=== PATIENT | male | born 1975 ===

== ENCOUNTER 2019-03-09 15:57 | Emergency (ER) | payer OTHER ==
--- NOTE | 2019-03-09 16:06 | UC ---
Lower Extremity/Ankle HPI - HPI Summary HPI Summary: Has noticed blisters on his R bottom foot for several weeks. He does state that he picks at them. Today noticed pain and redness. Uses topical antifungal w/ no relief. Of note he walks up to 9mi a day but uses cotton socks. Has had MRSA in the past. - History of Current Complaint Chief Complaint: UCGeneralIllness Stated Complaint: RT LEG ANKLE SWELLING Time Seen by Provider: 03/09/19 16:03 Hx Obtained From: Patient Aggravating Factor(s): Ambulation Alleviating Factor(s): Rest Able to Bear Weight: Yes - Allergies/Home Medications Allergies/Adverse Reactions: Allergies Allergy/AdvReac Type Severity Reaction Status Date / Time Egg Derived Allergy Hives/Diff. Verified 03/09/19 16:25 Breathing/I tching Penicillins Allergy See Comment Verified 03/09/19 16:26 poison khurram extract Allergy Hives Verified 03/09/19 16:26 poison oak extract Allergy Hives Verified 03/09/19 16:26 Home Medications: Home Medications Acetaminophen TAB* [Tylenol TAB*] 03/09/19 [History] PMH/Surg Hx/FS Hx/Imm Hx Endocrine History: Other - obesity - Surgical History Surgical History: None - Family History Known Family History: Positive: None, Unknown - Social History Alcohol Use: None Substance Use Type: Marijuana Smoking Status (MU): Former Smoker Type: Cigarettes Amount Used/How Often: quit 06/26/14 Review of Systems All Other Systems Reviewed And Are Negative: Yes Constitutional: Negative: Fever Skin: Positive: Other. Negative: Rash Gastrointestinal: Negative: Vomiting, Nausea Musculoskeletal: Positive: Edema. Negative: Arthralgia Physical Exam Triage Information Reviewed: Yes Appearance: Well-Appearing, Obese Vital Signs Reviewed: Yes Neurological: Positive: Alert Skin: Positive: Other - R plantar/arch area is erytheamtous, tender and mildly swollen up to just beneath ankle. Scattered pustules, some unroofed and some maceration. Lower Extremity Course/Dx - Course Course Of Treatment: Chronic tinea pedis w/ new cellulitis at R plantar/arch. Will tx both and we discussed getting wool socks since he is a long distance walker. Afebrile and good vitals. Straight forward case. - Differential Dx/Diagnosis Differential Diagnosis/HQI/PQRI: Gout, Infection, Other Provider Diagnosis: Cellulitis, Tinea pedis Discharge ED - Sign-Out/Discharge Documenting (check all that apply): Patient Departure All imaging exams completed and their final reports reviewed: No Studies - Discharge Plan Condition: Good Disposition: HOME Prescriptions: Sulfamethox/Trimethoprim DS* [Bactrim DS 800/160 TAB*] 1 tab PO BID 7 Days #14 tab Terbinafine HCl 250 mg PO DAILY 14 Days #14 tablet Patient Education Materials: Athlete's Foot (ED) Referrals: No Primary Care Phys,NOPCP [Primary Care Provider] - Additional Instructions: please consider finding a pcp for outpatient management - Billing Disposition and Condition Condition: GOOD Disposition: Home - Attestation Statements Provider Attestation: I was available for consult. This patient was seen by the CARLEY. The patient was not presented to, seen by, or examined by me. -Aquilino
[2019-03-09 16:19] VITALS: BP 135/91
== END 2019-03-09 16:49 | disposition home or self-care (01) ==
LOC: UCEAST 15:57
DX: B35.3 Tinea pedis (principal); L03.115 Cellulitis of right lower limb; Z87.891 Personal history of nicotine dependence; Z88.0 Allergy status to penicillin
CPT/HCPCS: 99202; G0463

== ENCOUNTER 2019-03-28 20:17 | Emergency (ER) | payer SELFPAY ==
[2019-03-28 20:30] VITALS: BP 152/98
[2019-03-28] MEDS ORDERED: Clindamycin CAP* 150 MG PO ONE (20:58)
--- NOTE | 2019-03-28 21:06 | UC ---
Lower Extremity/Ankle HPI - HPI Summary HPI Summary: 44 year old male with no PMH other than MRSA but no regular check ups/ PCP presents with redness, pain, medial ankle. patient was seen on 03/09, dx'd with cellulitis, tinea pedis, started on bactrim, finished full course with improvement, however redness increased over past few days, worse today. no fevers, chills. ambulatory with minimal pain. - History of Current Complaint Chief Complaint: UCSkin Stated Complaint: SKIN COMPLAINT Time Seen by Provider: 03/28/19 20:26 Hx Obtained From: Patient Onset/Duration: Sudden Onset, Lasting Days Severity Initially: Moderate Severity Currently: Moderate Pain Intensity: 5 Pain Scale Used: 0-10 Numeric Aggravating Factor(s): Standing, Ambulation Alleviating Factor(s): Rest Able to Bear Weight: No - Allergies/Home Medications Allergies/Adverse Reactions: Allergies Allergy/AdvReac Type Severity Reaction Status Date / Time Egg Derived Allergy Hives/Diff. Verified 03/09/19 16:25 Breathing/I tching Penicillins Allergy See Comment Verified 03/09/19 16:26 poison khurram extract Allergy Hives Verified 03/09/19 16:26 poison oak extract Allergy Hives Verified 03/09/19 16:26 Home Medications: Home Medications Calcium Carbonate [Antacid] 420 mg PO DAILY 03/28/19 [History Confirmed 03/28/19 ] PMH/Surg Hx/FS Hx/Imm Hx Previously Healthy: No - MRSA, multiple abscesses no PCP - Surgical History Surgical History: None - Family History Known Family History: Positive: None, Unknown, Non-Contributory - Social History Alcohol Use: None Substance Use Type: Marijuana Smoking Status (MU): Former Smoker Type: Cigarettes Amount Used/How Often: quit 06/26/14 Review of Systems All Other Systems Reviewed And Are Negative: Yes Constitutional: Negative: Fever, Chills, Fatigue Skin: Positive: Rash Psychological: Positive: Negative Is Patient Immunocompromised?: No Physical Exam Triage Information Reviewed: Yes Appearance: Well-Appearing, No Pain Distress, Well-Nourished Vital Signs: Initial Vital Signs Temp 99.7 F 03/28/19 20:20 Pulse 86 03/28/19 20:20 Resp 17 03/28/19 20:20 BP 152/98 03/28/19 20:20 Pulse Ox 98 03/28/19 20:20 Vital Signs Reviewed: Yes Eyes: Positive: Conjunctiva Clear Musculoskeletal: Positive: Strength Intact - right ankle, ROM Intact - right ankle, Edema @ - minimal medial ankle, no lateral pain. Neurological: Positive: Alert, Muscle Tone Normal Psychological: Positive: Normal Response To Family Skin: Positive: Other - erythema, moderate, extending medial to ankle from plantar midfoot to lower 1/3rd of ankle. mild 1+ pitting edema. TTP, + warmth Lower Extremity Course/Dx - Course Course Of Treatment: - Topical ointment at night for athletes foot, powder during the day - Clindamycin antibiotics 4 times a day for 2 weeks- if not nearly gone in 10 days return for follow up - Go to ER with fever, increased pain, decreased movement, ankle pain, increased swelling - Motrin/ Tylenol as needed for pain - FOllow up with PCP for general examination, bp monitoring, care connections info given - Differential Dx/Diagnosis Differential Diagnosis/HQI/PQRI: Cellulitis, Osteomyelitis, Sprain, Strain Provider Diagnosis: Cellulitis due to MRSA Discharge ED - Sign-Out/Discharge Documenting (check all that apply): Patient Departure All imaging exams completed and their final reports reviewed: No Studies - Discharge Plan Condition: Good Disposition: HOME Prescriptions: Clindamycin HCl 150 mg PO QID #48 capsule Clotrimazole 1% TOPICAL (NF) [Lotrimin 1% TOPICAL (NF)] 3 gm TOPICAL BID #1 tub unit Tolnaftate [Tinactin] 1 gm EX DAILY #1 pow Patient Education Materials: Clindamycin (By mouth), MRSA (Methicillin- Resistant Staphylococcus Aureus) (ED), Cellulitis (ED) Referrals: [facility] [Outside] No Primary Care Phys,NOPCP [Primary Care Provider] - Additional Instructions: - Topical ointment at night for athletes foot, powder during the day - Clindamycin antibiotics 4 times a day for 2 weeks- if not nearly gone in 10 days return for follow up - Go to ER with fever, increased pain, decreased movement, ankle pain, increased swelling - Motrin/ Tylenol as needed for pain - Billing Disposition and Condition Condition: GOOD Disposition: Home
== END 2019-03-28 21:11 | disposition home or self-care (01) ==
LOC: UCEAST 20:17
DX: L03.115 Cellulitis of right lower limb (principal); B95.62 Methicillin resistant Staphylococcus aureus infection as the cause of diseases classified elsewhere; Z91.012 Allergy to eggs; Z88.0 Allergy status to penicillin; Z91.09 Other allergy status, other than to drugs and biological substances; Z87.891 Personal history of nicotine dependence
CPT/HCPCS: 99212; A9270-GY; G0463

== ENCOUNTER 2019-06-30 15:37 | Emergency (ER) | payer SELFPAY ==
[2019-06-30 16:01] VITALS: BP 136/81
--- NOTE | 2019-06-30 16:41 | UC ---
Respiratory Complaint HPI - HPI Summary HPI Summary: patient had a cough on Monday and called in to work he needs a note to return to work - History of Current Complaint Chief Complaint: UCGeneralIllness Stated Complaint: NEEDS NOTE TO RETURN TO WORK Time Seen by Provider: 06/30/19 16:35 Hx Obtained From: Patient Onset/Duration: Resolved Pain Intensity: 0 Pain Scale Used: 0-10 Numeric Aggravating Factors: Nothing Alleviating Factors: Nothing Associated Signs And Symptoms: Positive: URI - Allergies/Home Medications Allergies/Adverse Reactions: Allergies Allergy/AdvReac Type Severity Reaction Status Date / Time Egg Derived Allergy Hives/Diff. Verified 06/30/19 16:01 Breathing/I tching Penicillins Allergy See Comment Verified 06/30/19 16:01 poison khurram extract Allergy Hives Verified 06/30/19 16:01 poison oak extract Allergy Hives Verified 06/30/19 16:01 PMH/Surg Hx/FS Hx/Imm Hx Previously Healthy: Yes - Surgical History Surgical History: None - Family History Known Family History: Positive: None, Unknown, Non-Contributory - Social History Occupation: Employed Full-time Lives: With Family Alcohol Use: Rare Substance Use Type: Marijuana Smoking Status (MU): Former Smoker Type: Cigarettes Amount Used/How Often: quit 06/26/14 Review of Systems All Other Systems Reviewed And Are Negative: Yes Constitutional: Positive: Negative Skin: Positive: Negative Eyes: Positive: Negative ENT: Positive: Negative Respiratory: Positive: Cough - resolved Cardiovascular: Positive: Negative Gastrointestinal: Positive: Negative Genitourinary: Positive: Negative Motor: Positive: Negative Neurovascular: Positive: Negative Musculoskeletal: Positive: Negative Neurological: Positive: Negative Psychological: Positive: Negative Is Patient Immunocompromised?: No Physical Exam Triage Information Reviewed: Yes Appearance: Well-Appearing, Well-Nourished, Obese Vital Signs: Initial Vital Signs Temp 98.2 F 06/30/19 15:56 Pulse 69 06/30/19 15:56 Resp 20 06/30/19 15:56 BP 136/81 06/30/19 15:56 Pulse Ox 97 06/30/19 15:56 Vital Signs Reviewed: Yes Eye Exam: Normal Eyes: Positive: Conjunctiva Clear ENT Exam: Normal ENT: Positive: Normal ENT inspection, Hearing grossly normal, Pharynx normal, TMs normal. Negative: Nasal congestion, Trismus, Muffled voice, Hoarse voice Dental: Positive: Gross Decay/Caries @ Neck exam: Normal Neck: Positive: Supple, Nontender Respiratory: Positive: Chest non-tender, Lungs clear, No respiratory distress, No accessory muscle use, Wheezing Cardiovascular Exam: Normal Cardiovascular: Positive: RRR, No Murmur, Pulses Normal, Brisk Capillary Refill Musculoskeletal Exam: Normal Musculoskeletal: Positive: Strength Intact, ROM Intact, No Edema Neurological Exam: Normal Neurological: Positive: Alert, Muscle Tone Normal Psychological Exam: Normal Skin Exam: Normal Respiratory Course/Dx - Course Course Of Treatment: Albuterol MDI prn cough and wheeze referral to pcp for further concerns may return to work 07/01/19 - Differential Dx/Diagnosis Provider Diagnosis: URI (upper respiratory infection), Bronchospasm Discharge ED - Sign-Out/Discharge Documenting (check all that apply): Patient Departure All imaging exams completed and their final reports reviewed: No Studies - Discharge Plan Condition: Stable Disposition: HOME Prescriptions: Albuterol HFA INHALER* [Ventolin HFA Inhaler*] 2 puff INH Q4H PRN #1 mdi PRN Reason: cough/wheeze Patient Education Materials: Upper Respiratory Infection (ED) Forms: *Work Release Referrals: [facility] [Outside] - If Needed - Billing Disposition and Condition Condition: STABLE Disposition: Home
== END 2019-06-30 16:57 | disposition home or self-care (01) ==
LOC: UCEAST 15:37
DX: J06.9 Acute upper respiratory infection, unspecified (principal); J98.01 Acute bronchospasm; Z87.891 Personal history of nicotine dependence; Z91.012 Allergy to eggs; Z88.0 Allergy status to penicillin; Z91.09 Other allergy status, other than to drugs and biological substances
CPT/HCPCS: 99212; G0463